=== PATIENT | female | born 1970 | race Caucasian/White ===

== ENCOUNTER 2019-05-19 12:29 | Outpatient (CLI) | payer BC ==
--- NOTE | 2019-05-19 15:52 | ULT ---
RIGHT LOWER EXTREMITY VENOUS DUPLEX EXAM: 05/19/19 The veins of the right lower extremity evaluated with ultrasound and Doppler. Color Doppler, spectral analysis and compression studies. INDICATION: Right lower extremity pain and edema. Deep veins of the right lower extremity showed normal blood flow and compression. No evidence of DVT. IMPRESSION: Negative right lower extremity venous duplex exam. POS: [facility]
== END 2019-05-19 12:30 | disposition home or self-care (01) ==
LOC: BICULT 12:29
PROVIDERS: ATTEND Orthopaedic Surgery
DX: M79.661 Pain in right lower leg (principal); M25.461 Effusion, right knee

== ENCOUNTER 2019-05-23 11:42 | Outpatient (CLI) | payer BC ==
--- NOTE | 2019-05-23 15:16 | MRI ---
MRI OF RIGHT KNEE: DATE: 05/23/2019. PROVIDED CLINICAL HISTORY: Right knee pain. FINDINGS: The anterior cruciate ligament, posterior cruciate ligament, medial collateral ligament, an lateral c ollateral ligamentous complex demonstrated an intact MR appearance, as does the extensor mechanism. There is a complex tear involving the body and posterior horn of the medial meniscus with a displaced flap component suspected at the posterior aspect of the medial meniscotibial recess. The lateral me niscus demonstrates no evidence for tear. No focal articular cartilage defect is apparent. There is articular cartilage fissuring involving th e median ridge that involves greater than 50% of the thickness of the patellar cartilage. There is i rregularity involving the superficial aspects of the medial facet articular cartilage. There are foc i of subchondral signal alteration involving the anterior aspects of the medial femoral condyle presu mably reactive to the meniscal tear. There is a moderate knee joint effusion. Evidence for Bone's cyst with associated rupture. No focal concerning regional marrow or muscular s ignal abnormality apparent. There is an apparent intraarticular body within the central aspects of t he medial gastrocnemius recess measuring about 13 mm. IMPRESSION: 1. Complex medial meniscal tear as described. 2. Patellar chondrosis. 3. Moderate knee joint effusion with ruptured Bone's cyst. 4. Intraarticular body as described. POS: [facility]
== END 2019-05-23 11:43 | disposition home or self-care (01) ==
LOC: SCSMRI 11:42
PROVIDERS: ATTEND Orthopaedic Surgery
DX: M25.561 Pain in right knee (principal); M25.461 Effusion, right knee; G89.29 Other chronic pain; S83.231A Complex tear of medial meniscus, current injury, right knee, initial encounter; M22.41 Chondromalacia patellae, right knee; M66.0 Rupture of popliteal cyst; M25.861 Other specified joint disorders, right knee

== ENCOUNTER 2019-06-20 06:54 | Outpatient (CLI) | payer BC ==
[2019-06-20 18:30] LABS: #Eosinphils 0.3 thou/uL (0.0-0.7); #Lymphocytes 2.9 thou/uL (1.20-3.40); #Monocytes 0.6 thou/uL (0.11-0.59); %Basophils 0.6 % (0.0-1.0); %Eosinophils 3.2 % (0.0-10.0); %Lymphocytes 33.1 % (21.0-51.0); %Monocytes 6.7 % (0.0-10.0); %Neutrophils 56.5 % (42.0-75.0); Hemoglobin 12.8 g/dL (12.0-16.0); Mean Corpuscular HGB CONC 33.5 g/dL (32.0-36.0); Mean Corpuscular Hemoglobin 31.5 pg (27.0-31.0); Mean Corpuscular Volume 94.3 fL (78.0-98.0); Mean Platelet Volume 8.1 fL (7.4-10.4); Platelet Count 335 thou/uL (130-400); RBC Distribution Width 12.3 % (11.5-14.5); Red Blood Cell (RBC) Count 4.06 mill/uL (4.20-5.40); White Blood Cell (WBC) Count 8.8 thou/uL (4.8-10.8)
[2019-06-20 18:49] LABS: Anion Gap 15 mmol/L (10-20); BUN (Urea Nitrogen) 11 mg/dL (7.0-18.7); Calc. Creatinine Clearance 0 mL/min (70-130); Calcium 9.3 mg/dL (7.8-10.44); Carbon Dioxide 22 mmol/L (22-29); Chloride 105 mmol/L (98-107); Estimated GFR-MDRD 81; Glucose 87 mg/dL (70-105); Potassium 3.9 mmol/L (3.5-5.1); Sodium 138 mmol/L (136-145)
--- NOTE | 2019-06-21 11:59 | EKG ---
Test Reason : Blood Pressure : / mmHG Vent. Rate : 066 BPM Atrial Rate : 066 BPM P-R Int : 210 ms QRS Dur : 100 ms QT Int : 420 ms P-R-T Axes : 078 059 067 degrees QTc Int : 440 ms Sinus rhythm with 1st degree A-V block Otherwise normal ECG No previous ECGs available Confirmed by DR. Ansley HENRY ([id number]) on 06/21/2019 11:58:52 AM Referred By: KYLERO Confirmed By:DR. Ansley HENRY
== END 2019-06-20 06:55 | disposition home or self-care (01) ==
LOC: LABBT 06:54
PROVIDERS: ATTEND Orthopaedic Surgery
DX: Z01.818 Encounter for other preprocedural examination (principal); S83.206A Unspecified tear of unspecified meniscus, current injury, right knee, initial encounter
CPT/HCPCS: 80048; 85025; 93005; 93010

== ENCOUNTER 2019-06-22 07:32 | Day surgery (SDC) | payer BC ==
[2019-06-20 17:25] VITALS: BMI 33.9
[2019-06-22] MEDS ORDERED: PROPOFOL 20 ML ONE (08:25)
[2019-06-22] MEDS ORDERED: Clindamycin/D5W 600 mg/50 ml Premix Bag ONE (08:32)
[2019-06-22] MEDS ORDERED: Fentanyl 100 MCG/2 ML VIAL ONE (09:28)
[2019-06-22] MEDS ORDERED: PROPOFOL 200 MG/20 ML VIAL ONE (09:28)
[2019-06-22] MEDS ORDERED: Lidocaine 2% w/Epinephrine 1:200K 20 ML VIAL ONE (09:28)
[2019-06-22] MEDS ORDERED: Ondansetron PF 4 MG/2 ML Vial ONE (09:28)
[2019-06-22] MEDS ORDERED: Dexamethasone 20 MG/5 ML VIAL ONE (09:28)
[2019-06-22] MEDS ORDERED: Bupivacaine HCl 0.5%/Epinephrine 1:200,000/PF 30 ml Vial ONE (09:28)
[2019-06-22] MEDS ORDERED: Lidocaine 1% PF 5 ML VIAL ONE (09:28)
[2019-06-22] MEDS ORDERED: Lidocaine 1% w/Epinephrine 1:100K 20 ML VIAL ONE (09:30)
[2019-06-22] MEDS ORDERED: Bupivacaine PF 0.5% 30 ML VIAL ONE (09:30)
[2019-06-22] MEDS ORDERED: Bupivacaine 0.25% HCL 30 ML VIAL ONE (09:30)
--- NOTE | 2019-06-22 11:42 | OP ---
DATE OF PROCEDURE: 06/22/2019 PREOPERATIVE DIAGNOSIS: Right knee complex posterior horn medial meniscus tear with a large flap components. POSTOPERATIVE DIAGNOSES: 1. Right knee complex posterior horn medial meniscus tear with a large flap components. 2. 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 PROCEDURES PERFORMED: 1. Right knee arthroscopy with partial medial meniscectomy. 2. Debridement and shaving of the patella and lateral tibial plateau. GROUP DIRECTOR EXPERIENCE: None. ESTIMATED BLOOD LOSS: Minimal. COMPLICATIONS: None. ANESTHESIA: The patient had general anesthetic as well as a local knee block and went to recovery room in stable condition. INDICATIONS: This is a 48-year-old female who comes in complaining of pain, swelling, and catching in the knee. At this time, she was found to have a large medial meniscus tear and opted to have surgery. DESCRIPTION OF PROCEDURE: After all appropriate consent forms were explained and signed, she was taken back to the operative room and at this time was given general anesthetic. Once the level of anesthesia was appropriate, a tourniquet was placed on the right thigh and leg was placed in arthroscopic leg galeano. The limb was then prepped and draped in standard surgical fashion. The limb was then exsanguinated, and the tourniquet was taken up to 300 mmHg. Inferolateral portal was then established. Scope was placed into the knee joint. A needle localization technique was then used to make a medial working portal. Diagnostic arthroscopy commenced in the notch. The ACL and PCL were probed and found to be intact. The medial compartment showed the femoral condyle overall to be in good condition. There was some scuffing on the medial tibial plateau. The medial meniscus was probed and found to have a large radial type tear with large flap components going both medial and lateral, such that the medial part was flipped underneath the meniscus and the lateral part was left into the notch. We turned our attention first to the medial part using meniscal biter and shaver to remove any loose unstable meniscal tissue. Making sure under the undersurface of the meniscus, there was no large flap still there. Once this was done, we had to get out her other portion of our tear by switching the camera into the medial portal and going through the notch, again using the biter and shaver to trim down the torn meniscus back to a stable base. Once this was done, we then turned our attention laterally. Laterally, there was some unstable cartilage on the tibial plateau posteriorly. In front of the posterior horn, this continued anteriorly. Any unstable chondral flaps were debrided with the shaver. Meniscus itself was in good condition as was the popliteal tendon. At this time, the gutters were swept through. There was some synovitis, but no other significant abnormality. We then turned our attention to the patellofemoral joint. The trochlea looked fragoso. The patella had some large unstable chondral flaps and inferior medial facet of the patella. Again, these were debrided with a mechanical shaver back to a stable base. At this time, we went through the knee one more time, looking for any remaining loose pieces, we did not find any. We switched the camera back over to the medial portal one more time, went between the medial femoral condyle and the PCL into the back of the knee looking for any remaining loose pieces. There were none. At this time, the scope was then removed, knee was drained, and portals were closed with simple nylon stitch. Bulky sterile dressing was applied. Tourniquet was let down. Toes pinked up nicely. The patient was then awakened. She was taken to recovery room in stable condition. All counts were correct at the end of the case. She did receive preoperative IV antibiotics. Job ID: [id number]
== END 2019-06-22 11:30 | disposition home or self-care (01) ==
LOC: SDC 07:32
PROVIDERS: ATTEND Orthopaedic Surgery
PROC: 0SBC4ZZ Excision of Right Knee Joint, Percutaneous Endoscopic Approach (ICD-10-PCS; principal; 2019-06-22)
DX: S83.231A Complex tear of medial meniscus, current injury, right knee, initial encounter (principal); M22.41 Chondromalacia patellae, right knee; Z87.891 Personal history of nicotine dependence; Z88.0 Allergy status to penicillin; Z91.040 Latex allergy status
CPT/HCPCS: J0670; J1100; J2001; J2405; J2704; J3010; J3490; S0020